=== PATIENT | female | born 1980 | race Caucasian/White ===

== ENCOUNTER 2023-05-06 10:20 | Emergency (ER) | payer OTHER, SELFPAY ==
[2023-05-06 11:24] VITALS: BP 170/79; PULSE 93; RESP 18; TEMP 36.6; O2SAT 98; BMI 39.2
--- NOTE | 2023-05-06 11:24 | ED_ITS ---
HPI - General Adult General Chief complaint: Abdominal Pain Stated complaint: SWOLLEN LEGS ABD PAIN Time Seen by Provider: 05/06/23 14:14 Source: patient Mode of arrival: ambulatory Limitations: no limitations History of Present Illness HPI narrative: [age] old female presents the emergency department multiple complaints she states she has pain all over body due to her chronic fibromyalgia. She states she has been swollen she has recently gone [place] of [place]. She states she was never seen for this she states her symptoms started this morning with some epigastric pain as well she denies any vomiting she does recall eating something and afterwards having a rash to her arms and legs. States she feels very itchy but is not taking for the itch or further abdominal pain. She was taking stating that she is very swollen in her legs Related Data Previous Rx's Medication Instructions Recorded diphenhydramine-zinc acetate 2 1 appl topical QID PRN itch #14 mL 05/06/23 %-0.1 % topical solution (Benadryl Itch Relief Stick) famotidine 20 mg tablet (Pepcid) 20 mg PO BID PRN gerd #60 tabs 05/06/23 ondansetron 4 mg disintegrating 4 mg PO Q6H #14 tabs 05/06/23 tablet Allergies Allergy/AdvReac Type Severity Reaction Status Date / Time morphine AdvReac Agitated Verified 05/06/23 11:27 Review of Systems Review of Systems: Review of systems: General: Patient denies any fever chills recent illness or falls Musculoskeletal: Denies back pain or body aches or other injuries HEENT: denies headache, runny nose, ear pain Respiratory: denies shortness of breath, cough Cardiovascular: no chest pain or palpitations : denies dysuria, frequency Abdomen: no nausea vomiting denies abdominal pain Extremities: no swelling, no pain Skin: no diaphoresis Yes all other systems are reviewed and are negative PMFSH Social History Social History Advance Directives: No Advance Directives Information Provided: No Physical Exam ED Vital Signs: Vital Signs - 24 hr 05/06/23 11:24 Temperature 98 F Pulse Rate 93 Respiratory Rate 18 Blood Pressure 170/79 H Pulse Oximetry 98 BMI result Body Mass Index 39.2 General: Well-appearing well-nourished in no signs of distress HEENT: Normocephalic atraumatic Neck: No signs of JVD, no masses no tenderness or lymphadenopathy Cardiovascular: Regular rate and rhythm Respiratory: Clear to auscultation bilaterally Abdomen: Soft nontender no masses Extremities: Normal pedal pulses no signs of edema Skin: Dry warm patient scratching her arms mostly her left there is nonspecific rash to right arm. No obvious other concerns. Back: No tenderness full ROM Course Course Course Narrative: This is an RME: Additional HPI, ROS, PE not included below will be deferred to primary provider. Patient is a 42 year old female with a PMH of diabetes presenting with swelling of her whole body, abdominal pain, and itching. Patient has been experiencing these symptoms for 3 days. Patient denies fever, chills, night sweats, vomiting, shortness of breath, chest pain. Plan: labs Medical Decision Making Medical Decision Making [facility] Narrative: This could be related to something that she ate or gastritis I do not think there is anything concerning her labs were all done and are normal she has no concerning signs of the little bit elevation of glucose but the patient admits that she has only been drinking tricia gaye. Differential Diagnosis Differential Diagnoses: The differential diagnosis associated with the presentation includes Gastritis anxiety fibromyalgia chronic pain swelling Admission/Observation Consideration of admission/observation: Escalation of care including adm ission/observation considered Lab Data [facility] Lab Attestation statement: I reviewed the patient's lab results. 05/06/23 11:38 05/06/23 11:38 Labs: Lab Results 05/06/23 05/06/23 05/06/23 Range/Units 11:38 11:38 11:38 WBC 9.8 (4.8-10.8) X10*3/uL RBC 4.76 (4.20-5.50) X10*6/uL Hgb 11.9 L (12.0-16.0) g/dl Hct 37.3 (37.0-47.0) % MCV 78.4 L (80.0-98.0) fL MCH 25.0 L (27.0-33.0) pg MCHC 31.9 (31.0-35.0) g/dl RDW 13.3 (11.0-16.0) % Plt Count 388 (160-400) X10*3/uL MPV 9.3 L (9.4-12.3) fL Immature Gran % (Auto) 1.0 H (0.0-0.4) % Neut % (Auto) 47.3 (45-73) % Lymph % (Auto) 40.8 H (20-40) % Centre % (Auto) 7.8 (2-11) % Eos % (Auto) 2.8 (0-4) % Baso % (Auto) 0.3 (0-2) % Lymph # (Auto) 4.0 (1.2-4.9) X10*3/uL Centre # (Auto) 0.8 (0.1-1.2) X10*3/uL Eos # (Auto) 0.3 (0.0-0.4) X10*3/uL Baso # (Auto) 0.0 (0.0-0.2) X10*3/uL Abs Immat Gran (auto) 0.10 H (0.00-0.03) X10*3/uL Absolute Neuts (auto) 4.6 (2.0-8.3) x10*3/uL Absolute Nucleated RBC 0.000 (0.0-0.012) X10*3/uL Nucleated RBC % (auto) 0.0 (0.0-0.2) /100WBC Sodium 140 (135-145) mmol/L Potassium 3.8 (3.3-5.1) mmol/L Chloride 109 H (96-108) mmol/L Carbon Dioxide 21 L (22-29) mmol/L Anion Gap 14 (12-20) BUN 11 (9-16) mg/dL Creatinine 0.71 (0.5-1.4) mg/dL Estim Creat Clear Calc 132.8 Estimated GFR > 60 Random Glucose 265 H (60-115) mg/dL Calcium 9.2 (8.4-10.2) mg/dL Magnesium 1.8 (1.6-2.6) mg/dL Total Bilirubin 0.4 (0.0-1.0) mg/dL AST 24 (5-31) U/L ALT 49 H (0-31) U/L Alkaline Phosphatase 75 (39-117) U/L B-Natriuretic Peptide < 10 (<100) pg/mL Total Protein 6.5 (6.5-8.0) g/dL Albumin 3.7 (3.5-5.0) g/dL Lipase 17 (8-78) U/L Beta HCG, Quant mIU/mL COVID-19 ([facility]) (Negative) COVID-19 Clin Com 05/06/23 05/06/23 Range/Units 11:38 11:38 WBC (4.8-10.8) X10*3/uL RBC (4.20-5.50) X10*6/uL Hgb (12.0-16.0) g/dl Hct (37.0-47.0) % MCV (80.0-98.0) fL MCH (27.0-33.0) pg MCHC (31.0-35.0) g/dl RDW (11.0-16.0) % Plt Count (160-400) X10*3/uL MPV (9.4-12.3) fL Immature Gran % (Auto) (0.0-0.4) % Neut % (Auto) (45-73) % Lymph % (Auto) (20-40) % Centre % (Auto) (2-11) % Eos % (Auto) (0-4) % Baso % (Auto) (0-2) % Lymph # (Auto) (1.2-4.9) X10*3/uL Centre # (Auto) (0.1-1.2) X10*3/uL Eos # (Auto) (0.0-0.4) X10*3/uL Baso # (Auto) (0.0-0.2) X10*3/uL Abs Immat Gran (auto) (0.00-0.03) X10*3/uL Absolute Neuts (auto) (2.0-8.3) x10*3/uL Absolute Nucleated RBC (0.0-0.012) X10*3/uL Nucleated RBC % (auto) (0.0-0.2) /100WBC Sodium (135-145) mmol/L Potassium (3.3-5.1) mmol/L Chloride (96-108) mmol/L Carbon Dioxide (22-29) mmol/L Anion Gap (12-20) BUN (9-16) mg/dL Creatinine (0.5-1.4) mg/dL Estim Creat Clear Calc Estimated GFR Random Glucose (60-115) mg/dL Calcium (8.4-10.2) mg/dL Magnesium (1.6-2.6) mg/dL Total Bilirubin (0.0-1.0) mg/dL AST (5-31) U/L ALT (0-31) U/L Alkaline Phosphatase (39-117) U/L B-Natriuretic Peptide (<100) pg/mL Total Protein (6.5-8.0) g/dL Albumin (3.5-5.0) g/dL Lipase (8-78) U/L Beta HCG, Quant < 2 mIU/mL COVID-19 ([facility]) Negative (Negative) COVID-19 Clin Com See Note External Record Review External record reviewed: Inpatient record Chronic Conditions Patient?s care impacted by: Diabetes and Hypertension Social Determinants Patient?s care significantly limited by Social Determinants of Health including: Inadequate housing Core Measures AMI core measures followed: Yes Discharge Plan Discharge Clinical Impression: Rash, Abdominal pain, Swelling Patient Disposition: Home, Self-Care Instructions: Contact Dermatitis (DC), Acute Rash (ED), Abdominal Pain (ED), Edema (ED) Additional Instructions: He was seen today for abdominal pain rash and itchiness as well as swelling lower body. I do not appreciate any swelling I did see you have a nonspecific rash to her body. You did have labs done which were all normal. We discharged home Benadryl and Pepcid. Please call follow-up with her doctor you can use the Benadryl topically as needed or he can try oral Benadryl but be where that can make you sleepy. If you have any other concerns please do not hesitate to come back to emergency department. Prescriptions: New Benadryl Itch Relief Stick 2-0.1 % solution 1 appl topical QID PRN (Reason: itch) Qty: 14 0RF famotidine [Pepcid] 20 mg tablet 20 mg PO BID PRN (Reason: gerd) Qty: 60 0RF ondansetron 4 mg tablet,disintegrating 4 mg PO Q6H Qty: 14 0RF
[2023-05-06 12:00] LABS: Alanine Aminotransferase 49 U/L (0-31); Albumin Level 3.7 g/dL (3.5-5.0); Alkaline Phosphatase 75 U/L (39-117); Anion Gap 14 (12-20); Aspartate Amino Transferase 24 U/L (5-31); Bilirubin Total 0.4 mg/dL (0.0-1.0); Blood Urea Nitrogen 11 mg/dL (9-16); Calcium 9.2 mg/dL (8.4-10.2); Carbon Dioxide 21 mmol/L (22-29); Chloride 109 mmol/L (96-108); Creatinine Clr Calc Pharmacy 132.8; Estimated Glomerular Filt Rate > 60; Glucose Random 265 mg/dL (60-115); Lipase 17 U/L (8-78); Magnesium 1.8 mg/dL (1.6-2.6); Potassium 3.8 mmol/L (3.3-5.1); Sodium 140 mmol/L (135-145); Total Protein 6.5 g/dL (6.5-8.0)
[2023-05-06 14:44] VITALS: BP 158/87; PULSE 82; RESP 18; TEMP 37.2; O2SAT 98
--- NOTE | 2023-05-06 14:54 | PC.NURSE ---
Pt left prior to medication and d/c paperwork
== END 2023-05-06 14:54 | disposition home or self-care (01) ==
PROVIDERS: Physician Assistant; Emergency Provider Student in an Organized Health Care Education/Training Program; PCP Internal Medicine
DX: R60.0 Localized edema (principal); R21 Rash and other nonspecific skin eruption; R10.9 Unspecified abdominal pain; Z20.822 Contact with and (suspected) exposure to COVID-19; Z20.828 Contact with and (suspected) exposure to other viral communicable diseases; Z79.899 Other long term (current) drug therapy
CPT/HCPCS: 80053; 83690; 83735; 83880; 84702; 85025; 87635; 99282; 99283